=== PATIENT | female | born 1945 | race African-American/Black ===

== ENCOUNTER → 2017-02-28 | Outpatient (CLI) | payer MEDICARE, MEDICAID ==
[~2017-02-28] MED LIST: ALLO300T2 PO; BENA40TA3 PO; DICY10CA88 PO; DILT30TA3 PO; EZET10TA PO; GABA300S PO; HYDR-3513 PO; METH-24 PO; METOPROLOL PO; OMEP20CA10 PO; PHEN16.22 PO; RANI150C12 PO; ROSU10TA PO; SPIR25TA4 PO; TERA5CAP4 PO; ZOLP10TA6 PO
== END | disposition home or self-care (01) ==
LOC: NM 08:59
DX: R07.9 Chest pain, unspecified (principal)
CPT/HCPCS: 78452; 93017; A9500; J2785

== ENCOUNTER → 2017-08-21 | Outpatient (CLI) | payer MEDICARE, MEDICAID ==
[~2017-08-21] MED LIST changes: -EZET10TA PO; -METH-24 PO; +METH-375 PO; +ZET10 PO
== END | disposition home or self-care (01) ==
LOC: RAD 09:17
PROVIDERS: ATTEND Neurological Surgery
DX: Z53.21 Procedure and treatment not carried out due to patient leaving prior to being seen by health care provider (principal)

== ENCOUNTER 2019-07-14 11:08 | Inpatient (IN) | payer MEDICARE, MEDICAID ==
[~2019-07-14] VITALS: Ht 157.5 cm; Wt 94.5 kg
[~2019-07-14 11:08] MED LIST changes: -BENA40TA3 PO; +BENA40TA9 PO; +CRES10 PO; +EZET10TA13 PO; -OMEP20CA10 PO; +OMEP20CA5 PO; -ROSU10TA PO; -SPIR25TA4 PO; +SPIR25TA6 PO; -ZET10 PO
[2019-07-14] MEDS ORDERED: METHYLPREDNISOLONE SOD SUCC 125 MG/2 ML VIAL IV STA (12:18)
[2019-07-14] MEDS ORDERED: SODIUM CHLORIDE 0.9% 1,000 ML IV ONE (12:18)
[2019-07-14] MEDS ORDERED: ALBUTEROL (0.083%) 2.5MG/3ML NEB HHN STA (12:18)
[2019-07-14] MEDS ORDERED: ONDANSETRON HCL 4MG/2ML INJ IV STA (12:18)
[2019-07-14 12:30] LABS: BASOPHILS % 0.5 % (0.0-2.0); HEMOGLOBIN. 11.9 g/dL (12.0-16.0); LYMPHOCYTES % 28.8 % (20.0-50.0); MEAN CORPUSCULAR HEMOGLOBIN 27.2 pg (28.0-32.0); MEAN CORPUSCULAR VOLUME 84.7 fL (81.0-99.0); MEAN PLATELET VOLUME 8.8 fl (7.4-10.4); MONOCYTES % 7.4 % (2.0-8.0); NEUTROPHILS % 61.3 % (40.0-76.0); PLATELET 252 x1000/uL (130-400); RED BLOOD CELL COUNT 4.37 mill/uL (4.2-5.4); RED CELL DISTRIBUTION WIDTH 15.7 % (11.6-14.6)
[2019-07-14] MEDS ORDERED: MORPHINE SULFATE 4 MG/ML CPJ (NOT FOR IM USE) IV ONE ×2 (12:30→16:15)
[2019-07-14 12:33] LABS: CHLORIDE 108 mEq/L (98-107)
[2019-07-14] MEDS ORDERED: HYDRALAZINE 20MG/ML VIAL IV ONE ×2 (13:15→15:45)
[2019-07-14] MEDS ORDERED: ONDANSETRON HCL 4MG/2ML INJ IV ONE (15:45)
[2019-07-14] MEDS ORDERED: DEXTROSE 50% WATER 50ML SYRINGE IV PRN (16:45)
[2019-07-14] MEDS ORDERED: LORAZEPAM 2MG/ML CPJ IV PRN (16:45)
[2019-07-14] MEDS ORDERED: HYDROCODONE/ACETAMINOPHEN 10/325MG TABLET PO PRN (16:45)
[2019-07-14] MEDS ORDERED: IPRATROPIUM/ALBUTEROL 0.5-3(2.5)MG/3ML NEB HHN PRN (16:45)
[2019-07-14] MEDS ORDERED: HYDROMORPHONE HCL/PF 2MG/ML CPJ IV PRN (16:45)
[2019-07-14] MEDS ORDERED: CLONIDINE 0.2MG TABLET PO PRN (16:45)
[2019-07-14] MEDS ORDERED: DOCUSATE SODIUM 100MG CAPSULE PO PRN (16:45)
[2019-07-14] MEDS ORDERED: ONDANSETRON HCL 4MG/2ML INJ IV PRN (16:45)
[2019-07-14] MEDS ORDERED: DIPHENHYDRAMINE 50MG/ML VIAL IV PRN (16:45)
[2019-07-14 19:28] LABS: CLARITY URINE CLEAR (CLEAR); COLOR URINE YELLOW (YELLOW); KETONES URINE NEGATIVE (NEGATIVE); LEUKOCYTE ESTERASE URINE TRACE (NEGATIVE); NITRITE URINE NEGATIVE (NEGATIVE); OCCULT BLOOD URINE NEGATIVE (NEGATIVE); PROTEIN URINE NEGATIVE (NEGATIVE); SPECIFIC GRAVITY URINE 1.014 (1.005-1.030); UROBILINOGEN URINE 0.2 E.U./dL (0.2-1.0)
[2019-07-14] MEDS: ACETAMINOPHEN 325MG TABLET PO PRN (20:48)
[2019-07-14] MEDS: HYDRALAZINE HCL 25MG TABLET PO SCH (22:20)
[2019-07-14 22:30] VITALS: BP 187/89
[2019-07-14] MEDS: BENAZEPRIL 10MG TABLET PO SCH (23:13)
[2019-07-14] MEDS: ENOXAPARIN 30MG/0.3ML SYR SUBCUT SCH (23:13)
[2019-07-14] MEDS: MONTELUKAST SODIUM 10MG TABLET PO SCH (23:13)
[2019-07-15] VITALS: BP 134/61
[2019-07-15] MEDS ORDERED: POTASSIUM CHLORIDE INJ 40 MEQ in DEXT 5% WATER 250 ML IV NR ×2
[2019-07-15] MEDS: IPRATROPIUM/ALBUTEROL 0.5-3(2.5)MG/3ML NEB HHN SCH ×4 (00:26→22:46)
[2019-07-15] MEDS: BUDESONIDE 0.5MG/2ML NEB HHN SCH ×2 (00:26→08:58)
[2019-07-15 04:00] VITALS: BP 146/68
[2019-07-15] MEDS: BLOOD SUGAR DIAGNOSTIC STRIP TEST SCH ×4 (06:55→21:43)
[2019-07-15] MEDS: INSULIN LISPRO 100 UNITS/ML SUBCUT SCH ×4 (06:56→22:14)
[2019-07-15] MEDS: OMEPRAZOLE 20MG CAPSULE EXTENDED RELEASE PO SCH (06:58)
[2019-07-15] MEDS: HYDRALAZINE HCL 25MG TABLET PO SCH ×3 (06:59→21:43)
[2019-07-15 08:00] VITALS: BP 103/54
[2019-07-15] MEDS ORDERED: PNEUMOCOCCAL 23-VAL P-SAC VAC 0.5 ML IM ONE (08:00)
[2019-07-15] MEDS: HYDROCODONE/ACETAMINOPHEN 5/325MG TABLET PO PRN ×2 (08:51→15:06)
[2019-07-15] MEDS: ENOXAPARIN 30MG/0.3ML SYR SUBCUT SCH ×2 (08:51→21:40)
[2019-07-15] MEDS: FUROSEMIDE 20MG/2ML VIAL IVP SCH (08:51)
[2019-07-15] MEDS: BENAZEPRIL 10MG TABLET PO SCH (08:53)
[2019-07-15] MEDS: PROPRANOLOL HCL 10MG TABLET PO SCH (10:28)
[2019-07-15 12:00] VITALS: BP 143/95
[2019-07-15] MEDS ORDERED: DIAZEPAM 5 MG TABLET PO NR (12:00)
[2019-07-15] MEDS ORDERED: LORAZEPAM 2MG/ML CPJ IV PRN (13:15)
[2019-07-15] MEDS: METHYLPREDNISOLONE SOD SUCC 125 MG/2 ML VIAL IV SCH ×2 (15:05→21:41)
[2019-07-15] MEDS: GUAIFENESIN 600MG ER TABLET PO SCH ×2 (15:06→21:42)
[2019-07-15] MEDS: BACLOFEN 10MG TABLET PO SCH ×2 (15:06→21:43)
[2019-07-15 16:00] VITALS: BP 150/93
[2019-07-15] MEDS: MONTELUKAST SODIUM 10MG TABLET PO SCH (17:38)
[2019-07-15 20:00] VITALS: BP 147/70
[2019-07-15] MEDS: ATORVASTATIN CALCIUM 20MG TABLET PO SCH (21:42)
[2019-07-16] VITALS: BP 181/92
[2019-07-16] MEDS: IPRATROPIUM/ALBUTEROL 0.5-3(2.5)MG/3ML NEB HHN SCH ×4 (02:29→21:55)
[2019-07-16 04:00] VITALS: BP 168/71
[2019-07-16] MEDS: OMEPRAZOLE 20MG CAPSULE EXTENDED RELEASE PO SCH (05:57)
[2019-07-16] MEDS: HYDRALAZINE HCL 25MG TABLET PO SCH ×3 (05:57→21:22)
[2019-07-16] MEDS: BACLOFEN 10MG TABLET PO SCH ×3 (05:57→21:21)
[2019-07-16] MEDS: METHYLPREDNISOLONE SOD SUCC 125 MG/2 ML VIAL IV SCH ×3 (05:58→21:51)
[2019-07-16] MEDS: BLOOD SUGAR DIAGNOSTIC STRIP TEST SCH ×4 (05:58→21:24)
[2019-07-16] MEDS: ACETAMINOPHEN 325MG TABLET PO PRN (06:24)
[2019-07-16 08:00] VITALS: BP 173/88
[2019-07-16] MEDS: GUAIFENESIN 600MG ER TABLET PO SCH ×2 (08:53→21:21)
[2019-07-16] MEDS: FUROSEMIDE 20MG/2ML VIAL IVP SCH (08:54)
[2019-07-16] MEDS: BENAZEPRIL 10MG TABLET PO SCH (08:54)
[2019-07-16] MEDS: PROPRANOLOL HCL 10MG TABLET PO SCH (08:54)
[2019-07-16] MEDS: ENOXAPARIN 30MG/0.3ML SYR SUBCUT SCH ×2 (08:55→21:26)
[2019-07-16] MEDS: INSULIN LISPRO 100 UNITS/ML SUBCUT SCH ×4 (08:56→21:27)
[2019-07-16] MEDS ORDERED: HYDROCODONE/ACETAMINOPHEN 5/325MG TABLET PO PRN (09:00)
[2019-07-16] MEDS: AMLODIPINE 5MG TABLET PO SCH ×2 (09:09→21:21)
[2019-07-16 12:00] VITALS: BP 163/62
[2019-07-16 16:00] VITALS: BP 171/63
[2019-07-16] MEDS ORDERED: PROPRANOLOL HCL 20MG TABLET PO NR (17:30)
[2019-07-16] MEDS ORDERED: HYDRALAZINE HCL 25MG TABLET PO NR (17:30)
[2019-07-16] MEDS ORDERED: PROPRANOLOL HCL 10MG TABLET PO NR (18:00)
[2019-07-16] MEDS: MONTELUKAST SODIUM 10MG TABLET PO SCH (18:01)
[2019-07-16] MEDS ORDERED: FURO20TA4 MT (18:45)
[2019-07-16] MEDS ORDERED: LUBI8CAP PO (18:45)
[2019-07-16] MEDS ORDERED: ALBU18HF2 IH (18:45)
[2019-07-16] MEDS ORDERED: MIRA25TA PO (18:45)
[2019-07-16] MEDS ORDERED: PROP20TA7 PO (18:45)
[2019-07-16] MEDS ORDERED: OLOP2.5D5 EACHEYE (18:45)
[2019-07-16] MEDS ORDERED: IPRA3AMP31 IH (18:45)
[2019-07-16] MEDS ORDERED: CETI10TA10 PO (18:45)
[2019-07-16] MEDS ORDERED: NEPA1.7D EACHEYE (18:45)
[2019-07-16] MEDS ORDERED: CYCL30DR EACHEYE (18:45)
[2019-07-16] MEDS ORDERED: HYDR-4134 MT (18:45)
[2019-07-16] MEDS ORDERED: MULT-1180 PO (18:45)
[2019-07-16] MEDS ORDERED: LORA1TAB MT (18:45)
[2019-07-16] MEDS ORDERED: FLUT16SP15 BOTHNSTRLS (18:45)
[2019-07-16] MEDS ORDERED: BUDE6HFA INH (18:45)
[2019-07-16] MEDS ORDERED: DAPA5TAB PO (18:45)
[2019-07-16 20:00] VITALS: BP 149/53
[2019-07-16] MEDS: HYDROCODONE/ACETAMINOPHEN 5/325MG TABLET PO PRN (20:33)
[2019-07-16] MEDS: ATORVASTATIN CALCIUM 20MG TABLET PO SCH (21:21)
[2019-07-17] VITALS: BP 157/58
[2019-07-17] MEDS: IPRATROPIUM/ALBUTEROL 0.5-3(2.5)MG/3ML NEB HHN SCH ×3 (02:33→14:01)
[2019-07-17 04:00] VITALS: BP 157/70
[2019-07-17] MEDS: HYDRALAZINE HCL 25MG TABLET PO SCH (06:16)
[2019-07-17] MEDS: BACLOFEN 10MG TABLET PO SCH ×2 (06:16→12:57)
[2019-07-17] MEDS: BLOOD SUGAR DIAGNOSTIC STRIP TEST SCH ×2 (06:26→12:48)
[2019-07-17] MEDS: BENAZEPRIL 10MG TABLET PO SCH (08:44)
[2019-07-17] MEDS: AMLODIPINE 5MG TABLET PO SCH (08:44)
[2019-07-17] MEDS: GUAIFENESIN 600MG ER TABLET PO SCH (08:44)
[2019-07-17] MEDS: HYDROCODONE/ACETAMINOPHEN 5/325MG TABLET PO PRN (08:45)
[2019-07-17] MEDS: ENOXAPARIN 30MG/0.3ML SYR SUBCUT SCH (08:45)
[2019-07-17] MEDS: PROPRANOLOL HCL 10MG TABLET PO SCH (08:51)
[2019-07-17] MEDS ORDERED: FAMOTIDINE 20MG TABLET PO SCH (09:00)
[2019-07-17] MEDS: INSULIN LISPRO 100 UNITS/ML SUBCUT SCH ×2 (09:16→13:04)
[2019-07-17] MEDS ORDERED: BISACODYL 5MG TABLET PO PRN (12:00)
[2019-07-17] MEDS ORDERED: DOCUSATE SODIUM 250MG CAPSULE PO SCH (12:00)
[2019-07-17] MEDS: ACETAMINOPHEN 325MG TABLET PO PRN (13:01)
[2019-07-17] MEDS: METHYLPREDNISOLONE SOD SUCC 125 MG/2 ML VIAL IV SCH ×2 (13:08→13:33)
[2019-07-17] MEDS ORDERED: HYDRALAZINE HCL 50MG TABLET PO SCH (14:00)
[2019-07-17 16:46] VITALS: BP 164/73
[2019-07-17] MEDS ORDERED: METOPROLOL TARTRATE 25MG TABLET PO SCH (21:00)
[2019-07-17] MEDS ORDERED: FLUTICASONE PROPIONATE 50MCG/SPRAY BOTTLE BOTHNSTRLS SCH ×2 (21:00)
== END 2019-07-17 18:15 | disposition home health service (06) | DRG 196 ==
LOC: ER 11:08 → EDBEDREQ 15:38 → EDBEDREQTM 15:38 → EDBEDREQ 16:17 → 5WST 16:17 → ENRESERV 21:14 → 6WST 07-15 14:42
PROVIDERS: ADMIT Internal Medicine; ATTEND Internal Medicine
DX: J84.10 Pulmonary fibrosis, unspecified (principal); J96.20 Acute and chronic respiratory failure, unspecified whether with hypoxia or hypercapnia; E78.5 Hyperlipidemia, unspecified; I10 Essential (primary) hypertension; K58.9 Irritable bowel syndrome, unspecified; K21.9 Gastro-esophageal reflux disease without esophagitis; M48.02 Spinal stenosis, cervical region; F40.240 Claustrophobia; J31.0 Chronic rhinitis; E11.9 Type 2 diabetes mellitus without complications; E78.00 Pure hypercholesterolemia, unspecified; F32.9 Major depressive disorder, single episode, unspecified; F41.9 Anxiety disorder, unspecified; M47.896 Other spondylosis, lumbar region; M47.892 Other spondylosis, cervical region; R26.9 Unspecified abnormalities of gait and mobility; D64.9 Anemia, unspecified; E87.6 Hypokalemia; E66.9 Obesity, unspecified; I45.10 Unspecified right bundle-branch block; G89.29 Other chronic pain; N32.81 Overactive bladder; R29.6 Repeated falls; Z90.710 Acquired absence of both cervix and uterus; Z86.73 Personal history of transient ischemic attack (TIA), and cerebral infarction without residual deficits; Z98.891 History of uterine scar from previous surgery; Z88.0 Allergy status to penicillin; Z88.2 Allergy status to sulfonamides; Z88.9 Allergy status to unspecified drugs, medicaments and biological substances; Z98.1 Arthrodesis status; Z68.38 Body mass index [BMI] 38.0-38.9, adult
CPT/HCPCS: 36415; 71045; 72131; 72141; 72148; 81003; 82962; 83036; 83880; 84484; 90732; 93005; 94640; 97116; 97162; 97166; 99285; J0360; J1650; J1815; J1940; J2060; J2270; J2405; J2930; J3480; J7030; J7060; J7611; J7620; J7626

== ENCOUNTER 2019-08-17 07:43 | Emergency (ER) | payer MEDICARE, MEDICAID ==
[~2019-08-17] VITALS: Ht 157.5 cm; Wt 95.0 kg
[~2019-08-17 07:43] MED LIST changes: +ALBU18HF2 IH; +BUDE6HFA INH; +CETI10TA10 PO; +CYCL30DR EACHEYE; +DAPA5TAB PO; +FLUT16SP15 BOTHNSTRLS; +FURO20TA4 MT; +HYDR-4134 MT; +IPRA3AMP31 IH; +LORA1TAB MT; +LUBI8CAP PO; +MIRA25TA PO; +MULT-1180 PO; +NEPA1.7D EACHEYE; +OLOP2.5D5 EACHEYE; +PROP20TA7 PO
[2019-08-17] MEDS ORDERED: HYDROCODONE/ACETAMINOPHEN 5/325MG TABLET PO ONE (10:00)
[2019-08-17 11:04] LABS: CHLORIDE 107 mEq/L (98-107)
[2019-08-17 11:07] LABS: PARTIAL THROMBOPLASTIN TIME 27.6 sec (23.4-31.0); PROTHROMBIN TIME 10.2 sec (9.6-11.0)
[2019-08-17 11:13] LABS: BASOPHILS % 0.6 % (0.0-2.0); EOSINOPHILS % 1.4 % (0.0-5.0); HEMATOCRIT. 37.2 % (36.0-48.0); HEMOGLOBIN. 11.9 g/dL (12.0-16.0); LYMPHOCYTES % 20.6 % (20.0-50.0); MEAN CORPUSCULAR HEMOGLOBIN 27.5 pg (28.0-32.0); MEAN CORPUSCULAR VOLUME 85.7 fL (81.0-99.0); MEAN PLATELET VOLUME 9.1 fl (7.4-10.4); MONOCYTES % 7.6 % (2.0-8.0); NEUTROPHILS % 69.8 % (40.0-76.0); PLATELET 233 x1000/uL (130-400); RED BLOOD CELL COUNT 4.34 mill/uL (4.2-5.4); RED CELL DISTRIBUTION WIDTH 15.8 % (11.6-14.6)
[2019-08-17 13:00] VITALS: BP 187/82
[2019-08-17] MEDS ORDERED: MORPHINE SULFATE 4 MG/ML CPJ (NOT FOR IM USE) IV ONE (13:00)
== END 2019-08-17 13:17 | disposition home or self-care (01) ==
LOC: ER 07:43
DX: S63.501A Unspecified sprain of right wrist, initial encounter (principal); M79.89 Other specified soft tissue disorders; X58.XXXA Exposure to other specified factors, initial encounter; Y93.9 Activity, unspecified; Y92.9 Unspecified place or not applicable
CPT/HCPCS: 36415; 71045; 73090; 73110; 80053; 85025; 85610; 85730; 93005; 93971; 96374; 99284; J2270

== ENCOUNTER 2019-11-12 05:22 | Day surgery (SDC) | payer MEDICARE, MEDICAID ==
[~2019-11-12] VITALS: Ht 157.5 cm; Wt 94.8 kg
[~2019-11-12 05:22] MED LIST changes: -ALLO300T2 PO; -CETI10TA10 PO; +CHOL-9 PO; -DILT30TA3 PO; -EZET10TA13 PO; -LORA1TAB MT; -METOPROLOL PO; +OMEP20CA14 PO; -OMEP20CA5 PO; -PHEN16.22 PO; -RANI150C12 PO; -SPIR25TA6 PO; -TERA5CAP4 PO; -ZOLP10TA6 PO
[2019-11-12] MEDS ORDERED: VANCOMYCIN HCL 1 GM/VIAL ONE (06:51)
[2019-11-12] MEDS ORDERED: BACITRACIN 15GM TUBE TOP ONE (06:51)
[2019-11-12] MEDS ORDERED: BACITRACIN 50,000 UNITS/VIAL ONE (06:51)
[2019-11-12] MEDS ORDERED: BUPIVACAINE HCL/PF 0.25% (2.5MG/ML) 10ML ONE (06:51)
[2019-11-12] MEDS ORDERED: NORMAL SALINE 0.9% 10 ML SYR ONE (06:51)
[2019-11-12] MEDS ORDERED: SKIN ADHESIVE 0.7 GM EA TOP ONE (06:52)
[2019-11-12] MEDS ORDERED: CLINDAMYCIN 900 MG PREMIX 50 ML IV ONE (07:20)
[2019-11-12] MEDS ORDERED: SODIUM CHLORIDE 0.9% 1,000 ML IV ONE (09:11)
[2019-11-12] MEDS ORDERED: HYDROMORPHONE HCL/PF 2MG/ML CPJ IV PRN (09:15)
[2019-11-12] MEDS ORDERED: MORPHINE SULFATE 2 MG/ML CPJ (NOT FOR IM USE) IV PRN (09:15)
[2019-11-12] MEDS ORDERED: MEPERIDINE HCL/PF 25MG/ML CPJ IV PRN (09:15)
[2019-11-12] MEDS ORDERED: ONDANSETRON HCL 4MG/2ML INJ IV PRN (09:15)
[2019-11-12] MEDS ORDERED: HYDROCODONE/ACETAMINOPHEN 10/325MG TABLET PO PRN (17:09)
== END 2019-11-12 12:20 | disposition home or self-care (01) ==
LOC: OR 05:22
PROVIDERS: ATTEND Orthopaedic Surgery
DX: M65.4 Radial styloid tenosynovitis [de Quervain] (principal); M10.9 Gout, unspecified; I10 Essential (primary) hypertension; E66.01 Morbid (severe) obesity due to excess calories; F32.9 Major depressive disorder, single episode, unspecified; E11.9 Type 2 diabetes mellitus without complications; E78.00 Pure hypercholesterolemia, unspecified; F41.9 Anxiety disorder, unspecified; M17.9 Osteoarthritis of knee, unspecified; K21.9 Gastro-esophageal reflux disease without esophagitis; J44.9 Chronic obstructive pulmonary disease, unspecified; Z79.82 Long term (current) use of aspirin; Z79.899 Other long term (current) drug therapy; Z90.710 Acquired absence of both cervix and uterus; Z68.39 Body mass index [BMI] 39.0-39.9, adult; Z98.890 Other specified postprocedural states; Z88.2 Allergy status to sulfonamides; Z88.1 Allergy status to other antibiotic agents; Z88.0 Allergy status to penicillin; Z88.8 Allergy status to other drugs, medicaments and biological substances; Z82.49 Family history of ischemic heart disease and other diseases of the circulatory system
CPT/HCPCS: 25000; 82962; J0330; J2250; J2405; J2704; J2710; J3010; J3490; A4565; J2765; J3370

== ENCOUNTER 2021-03-23 18:13 | Inpatient (IN) | payer MEDICARE, MEDICAID ==
[~2021-03-23] VITALS: Ht 157.5 cm; Wt 95.3 kg
[~2021-03-23 18:13] MED LIST changes: -DICY10CA88 PO
[2021-03-23] MEDS ORDERED: MAGNESIUM/ALUMINUM HYDROXIDE/SIMETHICONE 30ML UDC PO STA (18:28)
[2021-03-23] MEDS ORDERED: ONDANSETRON 4MG ODT PO ONE (18:30)
[2021-03-23] MEDS ORDERED: MORPHINE SULFATE 4 MG/ML CPJ (NOT FOR IM USE) IV ONE (18:45)
[2021-03-23 19:18] LABS: BASOPHILS % 0.5 % (0.0-2.0); EOSINOPHILS % 0.3 % (0.0-5.0); HEMATOCRIT. 38.7 % (36.0-48.0); HEMOGLOBIN. 12.4 g/dL (12.0-16.0); LYMPHOCYTES % 16.1 % (20.0-50.0); MEAN CORPUSCULAR HEMOGLOBIN 27.4 pg (28.0-32.0); MEAN CORPUSCULAR VOLUME 85.5 fL (81.0-99.0); MEAN PLATELET VOLUME 9.2 fl (7.4-10.4); MONOCYTES % 6.3 % (2.0-8.0); NEUTROPHILS % 76.8 % (40.0-76.0); PLATELET 219 x1000/uL (130-400); RED BLOOD CELL COUNT 4.53 mill/uL (4.2-5.4); RED CELL DISTRIBUTION WIDTH 14.7 % (11.6-14.6)
[2021-03-23 19:23] LABS: CHLORIDE 105 mEq/L (98-107)
[2021-03-23 19:25] LABS: PROTHROMBIN TIME 11.2 sec (9.6-11.0)
[2021-03-23 19:27] LABS: ETHANOL BLOOD < 10 mg/dL
[2021-03-23] MEDS ORDERED: MORPHINE SULFATE 4 MG/ML CPJ (NOT FOR IM USE) IV NR (20:45)
[2021-03-23] MEDS ORDERED: LACTATED RINGERS 1,000 ML IV ONE (20:45)
[2021-03-24 05:13] LABS: CLARITY URINE CLOUDY (CLEAR); COLOR URINE YELLOW (YELLOW); KETONES URINE TRACE (NEGATIVE); LEUKOCYTE ESTERASE URINE 2+ (NEGATIVE); NITRITE URINE NEGATIVE (NEGATIVE); OCCULT BLOOD URINE TRACE (NEGATIVE); PH URINE 5.5 (4.5-8.0); PROTEIN URINE 1+ (NEGATIVE); SPECIFIC GRAVITY URINE 1.027 (1.005-1.030); UROBILINOGEN URINE 0.2 E.U./dL (0.2-1.0)
[2021-03-24 05:29] LABS: *COCAINE SCREEN URINE NEGATIVE (NEGATIVE); METHADONE URINE SCREEN NEGATIVE (NEGATIVE); OPIATES URINE SCREEN PRESUMTIVE POSITIVE (NEGATIVE)
[2021-03-24 05:30] LABS: *AMPHETAMINES SCREEN URINE NEGATIVE (NEGATIVE); *BARBITURATES SCREEN URINE NEGATIVE (NEGATIVE); *BENZODIAZEPINES SCREEN URINE NEGATIVE (NEGATIVE); CANNABINOID URINE SCREEN NEGATIVE (NEGATIVE); PHENCYCLIDINE URINE SCREEN NEGATIVE (NEGATIVE)
[2021-03-24 06:52] VITALS: BP 146/65
[2021-03-24 07:55] VITALS: BP 124/48
[2021-03-24] MEDS ORDERED: BENAZEPRIL 10MG TABLET PO NR (10:00)
[2021-03-24] MEDS ORDERED: ONDANSETRON HCL 4MG/2ML INJ IV PRN (10:00)
[2021-03-24] MEDS: HYDRALAZINE HCL 50MG TABLET PO SCH ×2 (10:38→20:37)
[2021-03-24] MEDS: MORPHINE SULFATE 2 MG/ML CPJ (NOT FOR IM USE) IV PRN ×2 (10:40→18:24)
[2021-03-24] MEDS: DEXT 5%/0.45% NACL 1000ML 1,000 ML IV SCH ×2 (10:42→20:38)
[2021-03-24] MEDS ORDERED: DEXTROSE 50% WATER 50ML SYRINGE IV PRN (11:45)
[2021-03-24 12:00] VITALS: BP 141/62
[2021-03-24 12:12] LABS: AMYLASE 490 IU/L (25-115)
[2021-03-24] MEDS: BLOOD SUGAR DIAGNOSTIC STRIP TEST SCH ×3 (12:20→20:28)
[2021-03-24] MEDS: LEVOFLOXACIN 250MG PREMIX 50 ML IV SCH (12:48)
[2021-03-24 16:00] VITALS: BP 151/58
[2021-03-24 20:00] VITALS: BP 144/56
[2021-03-25] MEDS: BLOOD SUGAR DIAGNOSTIC STRIP TEST SCH ×4 (06:22→20:30)
[2021-03-25] MEDS: DEXT 5%/0.45% NACL 1000ML 1,000 ML IV SCH ×3 (06:24→20:25)
[2021-03-25 06:53] LABS: BASOPHILS % 0.4 % (0.0-2.0); EOSINOPHILS % 1.5 % (0.0-5.0); HEMATOCRIT. 32.2 % (36.0-48.0); HEMOGLOBIN. 10.4 g/dL (12.0-16.0); MEAN CORPUSCULAR HEMOGLOBIN 27.6 pg (28.0-32.0); MEAN CORPUSCULAR VOLUME 85.3 fL (81.0-99.0); MEAN PLATELET VOLUME 9.1 fl (7.4-10.4); MONOCYTES % 8.3 % (2.0-8.0); NEUTROPHILS % 77.8 % (40.0-76.0); PLATELET 178 x1000/uL (130-400); RED BLOOD CELL COUNT 3.78 mill/uL (4.2-5.4); RED CELL DISTRIBUTION WIDTH 14.5 % (11.6-14.6)
[2021-03-25 08:00] VITALS: BP 145/60
[2021-03-25] MEDS ORDERED: POTASSIUM CHLORIDE 20MEQ TABLET SR PO NR (08:00)
[2021-03-25] MEDS: HYDRALAZINE HCL 50MG TABLET PO SCH ×2 (08:37→20:24)
[2021-03-25] MEDS: ACETAMINOPHEN 325MG TABLET PO PRN (08:38)
[2021-03-25] MEDS: LEVOFLOXACIN 250MG PREMIX 50 ML IV SCH (11:03)
[2021-03-25] MEDS: MORPHINE SULFATE 2 MG/ML CPJ (NOT FOR IM USE) IV PRN ×2 (11:09→18:02)
[2021-03-25 12:00] VITALS: BP 143/66
[2021-03-25 16:00] VITALS: BP 165/59
[2021-03-25 20:00] VITALS: BP 123/72
[2021-03-26] VITALS: BP 153/70
[2021-03-26] MEDS: ACETAMINOPHEN 325MG TABLET PO PRN ×2 (00:39→11:13)
[2021-03-26] MEDS: BLOOD SUGAR DIAGNOSTIC STRIP TEST SCH ×4 (06:04→20:31)
[2021-03-26 08:53] LABS: CHLORIDE 109 mEq/L (98-107)
[2021-03-26] MEDS: HYDRALAZINE HCL 50MG TABLET PO SCH (09:48)
[2021-03-26] MEDS: LEVOFLOXACIN 250MG PREMIX 50 ML IV SCH (11:07)
[2021-03-26 12:00] VITALS: BP_SYST 175; BP_SYST 191; BP_DIAS 71; BP_DIAS 89
[2021-03-26] MEDS: POLYETHYLENE GLYCOL 3350 (17GM) 1 DOSE PACK PO SCH (14:15)
[2021-03-26] MEDS ORDERED: NA PHOS,M-B/NA PHOS,DI-BA ENEMA 118ML PR NR ×2 (15:00→18:00)
[2021-03-26 15:23] LABS: BASOPHILS % 0.3 % (0.0-2.0); EOSINOPHILS % 2.1 % (0.0-5.0); HEMATOCRIT. 34.7 % (36.0-48.0); HEMOGLOBIN. 11.5 g/dL (12.0-16.0); LYMPHOCYTES % 14.5 % (20.0-50.0); MEAN CORPUSCULAR VOLUME 84.3 fL (81.0-99.0); MONOCYTES % 6.8 % (2.0-8.0); NEUTROPHILS % 76.3 % (40.0-76.0); PLATELET 254 x1000/uL (130-400); RED BLOOD CELL COUNT 4.11 mill/uL (4.2-5.4); RED CELL DISTRIBUTION WIDTH 14.1 % (11.6-14.6)
[2021-03-26] MEDS: DEXT 5%/0.45% NACL 1000ML 1,000 ML IV SCH (15:28)
[2021-03-26] MEDS: MORPHINE SULFATE 2 MG/ML CPJ (NOT FOR IM USE) IV PRN (15:30)
[2021-03-26 16:00] VITALS: BP 191/89
[2021-03-26] MEDS: DOCUSATE SODIUM 100MG CAPSULE PO SCH (17:00)
[2021-03-26 17:28] VITALS: BP 191/89
[2021-03-26] MEDS: HYDRALAZINE HCL 100MG TABLET PO SCH (20:31)
[2021-03-26] MEDS: LISINOPRIL 20MG TABLET PO SCH (20:47)
[2021-03-26] MEDS: SENNOSIDES/DOCUSATE SOD 8.6/50MG TABLET PO SCH (21:00)
[2021-03-27] VITALS (7 sets, daily range): BP systolic 161–193; BP diastolic 67–94
[2021-03-27] MEDS: DEXT 5%/0.45% NACL 1000ML 1,000 ML IV SCH ×3 (04:42→19:08)
[2021-03-27] MEDS: MORPHINE SULFATE 2 MG/ML CPJ (NOT FOR IM USE) IV PRN (04:44)
[2021-03-27] MEDS: HYDRALAZINE HCL 100MG TABLET PO SCH ×3 (05:28→21:44)
[2021-03-27] MEDS: BLOOD SUGAR DIAGNOSTIC STRIP TEST SCH ×4 (06:47→21:45)
[2021-03-27 07:20] LABS: CHLORIDE 108 mEq/L (98-107)
[2021-03-27 07:25] LABS: AMYLASE 64 IU/L (25-115)
[2021-03-27 07:31] LABS: BASOPHILS % 0.4 % (0.0-2.0); EOSINOPHILS % 2.3 % (0.0-5.0); HEMOGLOBIN. 10.9 g/dL (12.0-16.0); LYMPHOCYTES % 13.3 % (20.0-50.0); MEAN CORPUSCULAR HEMOGLOBIN 27.9 pg (28.0-32.0); MEAN CORPUSCULAR VOLUME 84.7 fL (81.0-99.0); MONOCYTES % 7.8 % (2.0-8.0); NEUTROPHILS % 76.2 % (40.0-76.0); PLATELET 251 x1000/uL (130-400); RED CELL DISTRIBUTION WIDTH 14.2 % (11.6-14.6)
[2021-03-27] MEDS: POLYETHYLENE GLYCOL 3350 (17GM) 1 DOSE PACK PO SCH (08:55)
[2021-03-27] MEDS: DOCUSATE SODIUM 100MG CAPSULE PO SCH ×2 (08:55→17:23)
[2021-03-27] MEDS: LISINOPRIL 20MG TABLET PO SCH ×2 (08:55→21:45)
[2021-03-27] MEDS ORDERED: ZOLPIDEM TARTRATE 5MG TABLET PO PRN (09:45)
[2021-03-27] MEDS: LEVOFLOXACIN 250MG PREMIX 50 ML IV SCH (10:16)
[2021-03-27] MEDS ORDERED: KCL 20MEQ/100ML PREMIX 100 ML IV NR (11:00)
[2021-03-27] MEDS: ACETAMINOPHEN 325MG TABLET PO PRN (12:01)
[2021-03-27] MEDS: SENNOSIDES/DOCUSATE SOD 8.6/50MG TABLET PO SCH (21:00)
[2021-03-28] VITALS: BP 152/65
[2021-03-28 04:00] VITALS: BP 163/73
[2021-03-28] MEDS: DEXT 5%/0.45% NACL 1000ML 1,000 ML IV SCH (04:41)
[2021-03-28] MEDS: HYDRALAZINE HCL 100MG TABLET PO SCH ×2 (05:08→13:12)
[2021-03-28] MEDS: BLOOD SUGAR DIAGNOSTIC STRIP TEST SCH ×2 (06:47→12:57)
[2021-03-28 08:00] VITALS: BP 185/86
[2021-03-28] MEDS: POLYETHYLENE GLYCOL 3350 (17GM) 1 DOSE PACK PO SCH (09:00)
[2021-03-28] MEDS: DOCUSATE SODIUM 100MG CAPSULE PO SCH (09:15)
[2021-03-28] MEDS: LISINOPRIL 20MG TABLET PO SCH (09:16)
[2021-03-28] MEDS: LEVOFLOXACIN 250MG PREMIX 50 ML IV SCH (10:26)
[2021-03-28 12:06] LABS: AMYLASE 54 IU/L (25-115)
[2021-03-28 12:09] VITALS: BP 176/84
[2021-03-28] MEDS ORDERED: GABAPENTIN 300MG CAPSULE PO SCH (14:00)
[2021-03-28 15:29] VITALS: BP 137/76
[2021-03-28 16:00] VITALS: BP 173/82
== END 2021-03-28 16:30 | disposition home or self-care (01) | DRG 439 ==
LOC: ER 18:13 → 6WST 23:09 → ENRESERV 03-24 05:28
PROVIDERS: ADMIT Internal Medicine; ATTEND Internal Medicine
DX: K85.10 Biliary acute pancreatitis without necrosis or infection (principal); N39.0 Urinary tract infection, site not specified; K80.00 Calculus of gallbladder with acute cholecystitis without obstruction; E11.22 Type 2 diabetes mellitus with diabetic chronic kidney disease; E11.42 Type 2 diabetes mellitus with diabetic polyneuropathy; J44.9 Chronic obstructive pulmonary disease, unspecified; I12.9 Hypertensive chronic kidney disease with stage 1 through stage 4 chronic kidney disease, or unspecified chronic kidney disease; N18.9 Chronic kidney disease, unspecified; K76.0 Fatty (change of) liver, not elsewhere classified; R16.0 Hepatomegaly, not elsewhere classified; G47.33 Obstructive sleep apnea (adult) (pediatric); M96.1 Postlaminectomy syndrome, not elsewhere classified; E11.51 Type 2 diabetes mellitus with diabetic peripheral angiopathy without gangrene; M19.019 Primary osteoarthritis, unspecified shoulder; M17.10 Unilateral primary osteoarthritis, unspecified knee; F41.9 Anxiety disorder, unspecified; N32.81 Overactive bladder; E66.01 Morbid (severe) obesity due to excess calories; Z87.19 Personal history of other diseases of the digestive system; Z88.8 Allergy status to other drugs, medicaments and biological substances; Z88.0 Allergy status to penicillin; Z88.2 Allergy status to sulfonamides; Z79.899 Other long term (current) drug therapy; Z82.49 Family history of ischemic heart disease and other diseases of the circulatory system; Z83.3 Family history of diabetes mellitus; Z86.010 Personal history of colon polyps; Z79.51 Long term (current) use of inhaled steroids; Z68.38 Body mass index [BMI] 38.0-38.9, adult
CPT/HCPCS: 36415; 74176; 76700; 80048; 80053; 80061; 80305; 80320; 81003; 82150; 82962; 83036; 83605; 85025; 93970; 99285; A6261; C1893; J1956; J2270; J3480; Q0162; G0480